=== PATIENT | male | born 1930 | race Caucasian/White ===

== ENCOUNTER 2018-02-24 16:18 | Inpatient (IN) | payer OTHER, MEDICARE ==
[~2018-02-24] VITALS: Ht 175.3 cm; Wt 113.4 kg
[2018-02-24 17:17] LABS: PCO2 Arterial 62.1 mmHg (35-45); PO2 Arterial 82.4 mmHg (80-100)
[2018-02-24 17:18] LABS: pH Blood Arterial 7.19 (7.35-7.45)
[2018-02-24] MEDS ORDERED: ALBU2.5V5 (17:45)
[2018-02-24] MEDS ORDERED: ALBU90OI (17:45)
[2018-02-24] MEDS ORDERED: BENZ100A (17:46)
[2018-02-24] MEDS ORDERED: BICA50 (17:46)
[2018-02-24] MEDS ORDERED: BUDE6HFA (17:46)
[2018-02-24] MEDS ORDERED: LUPRON DEPOT45 MG (17:47)
[2018-02-24] MEDS ORDERED: LOSA50 (17:47)
[2018-02-24] MEDS ORDERED: FURO20 (17:47)
[2018-02-24] MEDS ORDERED: TOCO1000 (17:48)
[2018-02-24] MEDS ORDERED: TIOT18 (17:48)
[2018-02-24] MEDS ORDERED: ROSU10TA (17:48)
[2018-02-24] MEDS ORDERED: TAMS.4ER (17:48)
[2018-02-24] MEDS ORDERED: VERA240ER (17:48)
[2018-02-24 20:24] LABS: PCO2 Arterial 65.3 mmHg (35-45); PO2 Arterial 68.1 mmHg (80-100)
[2018-02-24] MEDS ORDERED: CALCA500S6 (20:24)
[2018-02-24 20:25] LABS: pH Blood Arterial 7.17 (7.35-7.45)
[2018-02-24] MEDS ORDERED: NAPR500 (20:25)
[2018-02-25 04:10] LABS: Hemoglobin 10.6 g/dL (13.5-17.5); Mean Corpuscular HGB 27.9 pg (26.0-34.0); Mean Corpuscular HGB Conc 31.2 g/dL (31.5-36.5); Mean Corpuscular Volume 90 fL (80-100); Mean Platelet Volume 8.8 fL (9.1-12.4); Platelet Count 166 K/mm3 (150-400); RDW Coefficient Variation 13.9 % (11.7-14.2); RDW Standard Deviation 45.5 fL (35.1-46.3)
[2018-02-25 04:14] LABS: PCO2 Arterial 44.8 mmHg (35-45); PO2 Arterial 69.4 mmHg (80-100); pH Blood Arterial 7.27 (7.35-7.45)
[2018-02-25 04:27] LABS: Bun/Creatinine Ratio 17.1 (12.0-20.0); Calcium, Blood 7.7 mg/dL (8.5-10.1); Creatinine, Blood 3.46 mg/dL (0.60-1.20); Potassium, Blood 4.7 mmol/L (3.5-5.5)
[2018-02-25 04:58] LABS: BAND PERCENT MAN 15 % (0-8); BASOPHILS PERCENT MAN 0 % (0-2); EOSINOPHILS PERCENT MAN 0 % (0-6); LYMPHOCYTES ABSOLUTE MAN 0.21 K/mm3 (0.84-5.20); LYMPHOCYTES PERCENT MAN 4 % (21-46); MONOCYTES PERCENT MAN 2 % (4-13); NEUTROPHILS ABSOLUTE MAN 5.07 K/mm3 (1.96-9.15); SEG NEUTROPHILS PERCENT MAN 79 % (41-73); TOTAL CELLS COUNTED 100
[2018-02-26 04:31] LABS: BASOPHILS ABSOLUTE AUTO 0.01 K/mm3 (0.00-0.23); BASOPHILS PERCENT AUTO 0 % (0-2); EOSINOPHILS ABSOLUTE AUTO 0.01 K/mm3 (0.00-0.68); EOSINOPHILS PERCENT AUTO 0 % (0-6); Hematocrit 34.4 % (37.0-53.0); Hemoglobin 10.7 g/dL (13.5-17.5); IMMATURE GRAN ABSOLUTE AUTO 0.04 K/mm3 (0.00-0.10); IMMATURE GRAN PERCENT AUTO 1 % (0-1); LYMPHOCYTES ABSOLUTE AUTO 0.69 K/mm3 (0.84-5.20); LYMPHOCYTES PERCENT AUTO 9 % (21-46); MONOCYTES ABSOLUTE AUTO 1.07 K/mm3 (0.16-1.47); MONOCYTES PERCENT AUTO 14 % (4-13); Mean Corpuscular HGB 27.7 pg (26.0-34.0); Mean Corpuscular HGB Conc 31.1 g/dL (31.5-36.5); Mean Corpuscular Volume 89 fL (80-100); Mean Platelet Volume 8.8 fL (9.1-12.4); NEUTROPHILS ABSOLUTE AUTO 5.93 K/mm3 (1.96-9.15); NEUTROPHILS PERCENT AUTO 77 % (41-73); Platelet Count 189 K/mm3 (150-400); RDW Standard Deviation 45.3 fL (35.1-46.3); Red Blood Cell Count 3.86 M/mm3 (4.30-5.90); White Blood Cell Count 7.75 K/mm3 (4.00-11.30)
[2018-02-26 04:50] LABS: Bun/Creatinine Ratio 16.1 (12.0-20.0); Calcium, Blood 7.8 mg/dL (8.5-10.1); Creatinine, Blood 4.92 mg/dL (0.60-1.20); Potassium, Blood 5.1 mmol/L (3.5-5.5)
[2018-02-27 05:54] LABS: BASOPHILS ABSOLUTE AUTO 0.02 K/mm3 (0.00-0.23); BASOPHILS PERCENT AUTO 0 % (0-2); EOSINOPHILS PERCENT AUTO 0 % (0-6); Hematocrit 38.9 % (37.0-53.0); Hemoglobin 12.2 g/dL (13.5-17.5); IMMATURE GRAN PERCENT AUTO 2 % (0-1); LYMPHOCYTES ABSOLUTE AUTO 0.29 K/mm3 (0.84-5.20); LYMPHOCYTES PERCENT AUTO 3 % (21-46); MONOCYTES ABSOLUTE AUTO 0.63 K/mm3 (0.16-1.47); MONOCYTES PERCENT AUTO 7 % (4-13); Mean Corpuscular HGB Conc 31.4 g/dL (31.5-36.5); Mean Corpuscular Volume 89 fL (80-100); Mean Platelet Volume 8.6 fL (9.1-12.4); NEUTROPHILS ABSOLUTE AUTO 7.85 K/mm3 (1.96-9.15); NEUTROPHILS PERCENT AUTO 87 % (41-73); Platelet Count 197 K/mm3 (150-400); RDW Coefficient Variation 14.1 % (11.7-14.2); RDW Standard Deviation 46.1 fL (35.1-46.3); Red Blood Cell Count 4.35 M/mm3 (4.30-5.90); White Blood Cell Count 8.99 K/mm3 (4.00-11.30)
[2018-02-27 06:16] LABS: Bun/Creatinine Ratio 17.4 (12.0-20.0); Calcium, Blood 8.2 mg/dL (8.5-10.1); Creatinine, Blood 4.54 mg/dL (0.60-1.20); Potassium, Blood 5.6 mmol/L (3.5-5.5)
[2018-02-27 08:09] LABS: PCO2 Arterial 59.1 mmHg (35-45); PO2 Arterial 64.1 mmHg (80-100); pH Blood Arterial 7.18 (7.35-7.45)
[2018-03-01] MEDS ORDERED: ONDA4ODT MM (10:10)
[2018-03-01] MEDS ORDERED: SCOPOLAMINE1 EACH TD (10:12)
[2018-03-01] MEDS ORDERED: MORP20L SL (10:14)
[2018-03-01] MEDS ORDERED: ALBU3IS INH (10:20)
[2018-03-01] MEDS ORDERED: Ativan0.5 MG PO (10:22)
[2018-03-01] MEDS ORDERED: Atropine Su0.1 MG/ML SL (10:25)
== END 2018-03-01 11:21 | disposition hospice, home (50) | DRG 871 ==
LOC: ER 16:18 → PCU 17:36 → EDBEDREQSVC 20:34 → PCU 02-28 18:30
PROVIDERS: Emergency Medicine; Hospitalist; Nurse Practitioner Acute Care
PROC: 5A09357 Assistance with Respiratory Ventilation, Less than 24 Consecutive Hours, Continuous Positive Airway Pressure (ICD-10-PCS; principal; 2018-02-24)
DX: A41.9 Sepsis, unspecified organism (principal); J18.9 Pneumonia, unspecified organism; J96.21 Acute and chronic respiratory failure with hypoxia; J96.22 Acute and chronic respiratory failure with hypercapnia; E87.2 Acidosis; J44.0 Chronic obstructive pulmonary disease with (acute) lower respiratory infection; N18.4 Chronic kidney disease, stage 4 (severe); E78.00 Pure hypercholesterolemia, unspecified; I73.9 Peripheral vascular disease, unspecified; E66.9 Obesity, unspecified; Z68.36 Body mass index [BMI] 36.0-36.9, adult; Z66 Do not resuscitate; Z85.038 Personal history of other malignant neoplasm of large intestine; F17.210 Nicotine dependence, cigarettes, uncomplicated; N18.9 Chronic kidney disease, unspecified; N40.0 Benign prostatic hyperplasia without lower urinary tract symptoms; C61 Malignant neoplasm of prostate; R65.20 Severe sepsis without septic shock; Z51.5 Encounter for palliative care; R33.9 Retention of urine, unspecified; I12.9 Hypertensive chronic kidney disease with stage 1 through stage 4 chronic kidney disease, or unspecified chronic kidney disease
CPT/HCPCS: 36415; 36600; 71045; 80048; 82803; 83880; 85025; 87070; 94640; 94660; 94760; 94762; 96374; 96375; 99285; J0456; J0696; J1650; J1940; J2060; J3010; J3480; J7030; J7050; J7120